=== PATIENT | male | born 1940 | race Caucasian/White ===

== ENCOUNTER → 2016-05-23 | Outpatient (CLI) | payer MEDICARE, OTHER | LOC: SP 09:59 | PROVIDERS: ATTEND Orthopaedic Surgery | DX: M79.661 Pain in right lower leg (principal); R60.9 Edema, unspecified; I82.502 Chronic embolism and thrombosis of unspecified deep veins of left lower extremity | CPT/HCPCS: 93971 ==

== ENCOUNTER → 2016-12-26 | Outpatient (CLI) | payer MEDICARE, OTHER ==
--- NOTE | 2016-12-26 19:13 | XCELERA REPORT ---
[address] [address] Transthoracic Echocardiogram Report Name: JAYLAN MONTOYA Age: 76 yrs Gender: Male : 1940 Patient Status: Outpatient Patient Location: Study Date: 12/26/2016 01:51 PM Reason For Study: CHF Ordering Physician: ORALIA SOSA Performed By: Ava Ramos Interpretation Summary Technically very poor study due to 5'6" and 214#. Ao root not enlarged but calcified ao annulus or valve sclerosis. No , prob no AR. Mild mitral annular calcification, MV poor imaged. No MS, no MR and no LA enlargement. No LVH, probably normal LVEF, but unable to do biplane EF to quantitate, there is stage I LV diastolic dysfunction. Incomplete LV segmental analysis, the Lat wall, LV apex, and anterior wall not well imaged . R heart poorly visualized, RV function appears normal. RVSP approx 24 mm, no pulm hypertension. Recommend MUGA to assess LVEF. MMode/2D Measurements \\T\\ Calculations RVDd: 4.3 cm LVIDd: 4.8 cm FS: 42.3 % Ao root diam: 2.6 cm IVSd: 0.79 cm LVIDs: 2.8 cm EDV(Teich): 109.2 ml Ao root area: 5.3 cm2 LVPWd: 0.82 cm ESV(Teich): 29.2 ml LA dimension: 3.4 cm EF(Teich): 73.2 % Doppler Measurements \\T\\ Calculations MV E max dennise: MV P1/2t max dennise: Ao V2 max: LV V1 max P.8 cm/sec 98.7 cm/sec 169.7 cm/sec 6.2 mmHg MV A max dennise: MV P1/2t: 55.8 msec Ao max PG: LV V1 max: 126.7 cm/sec MVA(P1/2t): 3.9 cm2 11.5 mmHg 124.0 cm/sec MV E/A: 0.79 MV dec slope: 517.7 cm/sec2 PA V2 max: TR max dennise: 101.7 cm/sec 241.6 cm/sec PA max P.1 mmHgTR max P.4 mmHg Electronically signed by: Carlos Hodge 12/26/2016 07:13 PM CC: ORALIA SOSA Andre
== END ==
LOC: SP 13:40
PROVIDERS: ATTEND Family Medicine
DX: I50.32 Chronic diastolic (congestive) heart failure (principal)
CPT/HCPCS: 93306